=== PATIENT | male | born 1975 | race African-American/Black ===

== ENCOUNTER 2024-03-26 10:32 | Emergency (ER) | payer MEDICAID ==
[~2024-03-26] VITALS: Ht 180.3 cm; Wt 113.4 kg
[2024-03-26 10:37] VITALS: O2SAT 100
[2024-03-26 11:46] LABS: BASOPHILS % 0.4 % (0.0-2.0); EOSINOPHILS % 2.1 % (0.0-5.0); HEMATOCRIT. 39.5 % (42.0-52.0); HEMOGLOBIN. 13.7 g/dL (14.0-18.0); LYMPHOCYTES % 35.6 % (20.0-50.0); MEAN CORPUSCULAR HEMOGLOBIN 32.2 pg (28.0-32.0); MEAN CORPUSCULAR HGB CONC 34.7 g/dL (31.0-37.0); MEAN CORPUSCULAR VOLUME 92.9 fL (80.0-94.0); MEAN PLATELET VOLUME 9.8 fl (7.4-10.4); MONOCYTES % 7.3 % (2.0-8.0); NEUTROPHILS % 54.6 % (40.0-76.0); RED BLOOD CELL COUNT 4.25 mill/uL (4.7-6.1); RED CELL DISTRIBUTION WIDTH 12.7 % (11.6-14.6)
[2024-03-26 11:48] LABS: DIFFERENTIAL COMMENT 1
[2024-03-26 11:50] LABS: ADD RBC MORPHOLOGY YES
[2024-03-26 11:53] LABS: CHLORIDE 108 mEq/L (98-107); POTASSIUM 4.1 mEq/L (3.5-5.1); SODIUM 135 mEq/L (136-145)
[2024-03-26 11:54] LABS: CARBON DIOXIDE 27 mEq/L (21-32)
[2024-03-26 11:55] LABS: CALCIUM 9.2 mg/dL (8.7-10.4)
[2024-03-26 11:59] LABS: CREATININE 0.8 mg/dL (0.6-1.3); GLUCOSE 101 mg/dL (70-105); UREA NITROGEN BLOOD 8 mg/dL (9-23)
[2024-03-26 12:01] LABS: ALANINE AMINOTRANSFERASE 77 IU/L (10-49); ALBUMIN 4.3 g/dL (3.2-4.8); ASPARTATE AMINOTRANSFERASE 81 IU/L (<34)
[2024-03-26 12:02] LABS: BILIRUBIN TOTAL 0.4 mg/dL (0.1-1.0); PROTEIN TOTAL 9.1 g/dL (6.0-8.3)
[2024-03-26 12:10] VITALS: BP 141/84; PULSE 76; RESP 14; TEMP 98
[2024-03-26 13:08] LABS: PLATELET ESTIMATE MARKEDLY DECREASED
[2024-03-26 13:09] LABS: PLATELET 20 x1000/uL (130-400)
== END 2024-03-26 13:13 | disposition left against medical advice (07) ==
LOC: ER 10:32 → CANBEDREQ 03-28 20:54
DX: D69.6 Thrombocytopenia, unspecified (principal); J45.909 Unspecified asthma, uncomplicated
CPT/HCPCS: 36415; 80053; 85025; 86850; 86900; 99283